=== PATIENT | female | born 1960 | race Caucasian/White ===

== ENCOUNTER 2018-02-16 06:30 | Day surgery (SDC) | payer OTHER ==
[2018-02-16] MEDS ORDERED: FENTAnyl 50 MCG/ML VIAL (08:43)
[2018-02-16] MEDS ORDERED: MIDAZOLAM 1 MG/ML 2 ML INJ ×2 (08:43)
== END 2018-02-16 10:40 | disposition home or self-care (01) ==
LOC: GIL 06:30
DX: Z12.11 Encounter for screening for malignant neoplasm of colon (principal)
CPT/HCPCS: 45378